=== PATIENT | male | born 1940 | race Caucasian/White ===

== ENCOUNTER → 2018-01-05 | Outpatient (CLI) | payer OTHER ==
[~2018-01-05] VITALS: Ht 162.6 cm; Wt 70.9 kg
[~2018-01-05] MED LIST: AMBIEN 5 MG TABL5 M1 PO; ASPIR 8181 MG PO; ATIVAN0.5 M1 PO; BACLOFEN 10MG T10 MG PO; CELEBREX 200 M200 M1 PO; CENTRUM SILVER1 EAC2 PO; CO Q-10100 MG PO; CRESTOR10 MG PO; CYMBALTA30 MG PO; FISH OIL 1,001000 M2 PO; LAMICTAL100 MG PO; LIORESAL 10 MG10 MG PO; NORCO 10-325 T1 EACH PO; NORCO 7.5-3251 EACH PO; OMEPRAZOLE40 MG PO; SYNTHROID75 MCG PO; TRAMADOL 50 MG50 MG PO; VITAMIN B-121000 MC3 PO; VITAMIN D-32000 UNIT PO
--- NOTE | ~2018-01-05 | HPC ---
[facility] [address] [place] [address] PAIN MANAGEMENT CONSULTATION Name: CYRIL MADISON Room #: REG CLManuela Mckenzie#: [id number] Admission: 01/05/18 Attend Phys: Rigoberto Barboza DO Discharge: Date of : 39 Report #: [id number] THIS REPORT FOR: //name// CC: Javed Barboza DATE OF SERVICE: 01/05/2018 HISTORY OF PRESENT ILLNESS: The patient is a 77-year-old gentleman seen in consultation at the request of Dr. Cardenas for assistance in management of chronic ongoing axial back pain. The patient has a long back pain history, states pain started in 2008 without antecedent trauma, but thinks symptoms may have been related to long car drive [place] the [place]. Had multiple interventional procedures; there are no records available but per the patient, he had at least 10 epidural injections between 03/2010 and 06/2011. Subsequently, had surgery with Dr. Eric Parra in 09/2011. States that following the surgery, he had a new pain in his left foot. The chronic axial back pain may not have been improved. He is a fairly poor historian in this regard. Subsequently, he had some injections by Dr. Murillo including perhaps injections into the left piriformis and trochanteric bursa (?). Progressed to have a subsequent lumbar revision in 02/[address] Dozier. In November of this year, he fell on the ice. He may have had a T12 compression fracture. X-rays do show a 30% compression fracture at this level though on physical exam, the patient does not have any point tenderness over the low thoracic, upper lumbar posterior spinous processes. Currently, the patient notes he has pain that he rates from 5-9 on a VAS. Pain is exacerbated with standing, walking, anywhere from 5-10 minutes. Gets some relief with lumbar flexion. Denies specific radicular symptoms. Pain does some primarily axial. He does note some chronic paresthesia in the left foot. Again, all status post to the 09/2011 surgery. Currently, he uses a rare hydrocodone. Tramadol has lost efficacy. He has taken Celebrex 200 mg 1 a day for some time, recently increased to b.i.d. with questionable efficacy. Had been prescribed lamotrigine by Dr. Dozier, sounds like he takes this on a curious p.r.n. basis with nominal efficacy. REVIEW OF SYSTEMS: Complete review of systems was attached to chart and gone over with the patient. He is , does not smoke or drink alcohol to excess. Retired 17 years ago. He had worked in the [employer] industry. 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 The aforementioned 2 back surgeries, 2010 and 2014. Had bilateral orchiectomy for testicular cancer in 1974, treated with radiation therapy, now gets [address] [address] PAIN MANAGEMENT CONSULTATION Name: CYRIL MADISON Room #: SHAUN Mckenzie#: [id number] Admission: 01/05/18 Attend Phys: Rigoberto Barboza DO Discharge: Date of : 39 Report #: [id number] injections of testosterone every 5 weeks. Pain impact score is 50/70. PHYSICAL EXAMINATION: VITAL SIGNS: A 5 feet 4 inches, 150-pound gentleman, BMI is 26.8 kilograms per meter squared. Blood pressure 164/70, pulse 104, respirations of 14, room air oxygen saturation 99%. Visual analog scale pain score is 5 at present. NEUROLOGIC: Cranial nerves 2-12 are grossly intact. HEENT: Pupils equal and reactive to light and accommodation. Extraocular muscles are intact. NECK: Thyroid is modestly enlarged. Cervical range of motion is adequate. Upper extremity strength is preserved. HEART: Regular rhythmical without murmur. LUNGS: Clear to auscultation. MUSCULOSKELETAL: Rises from chair using the armrest. Diffuse tenderness across the low back. Again, no discrete tenderness noted in the posterior spinous processes throughout the thoracolumbar spine. Lumbar flexion is good to about 80 degrees. Lower extremity strength is generally symmetric. Straight leg raise is equivocal. Patellar and Achilles reflexes are preserved. MAXIMUS test was equivocal. Does have tenderness over the SI joints and low lumbar facet pain is exacerbated with rotation, sidebending. Pelvic distraction does exacerbate some axial back pain (positive SI mediated pain). Does have tenderness in the low back, exacerbated with some rotation and sidebending. The only x-rays available are the lumbar spine from 12/06/2017 showing age indeterminate compression fracture with superior endplate compressed about 30% at T12. There is severe degenerative disk disease throughout the low lumbar spine. The patient states he is unable to tolerate the MRI due to significant claustrophobia. ASSESSMENT: 1. Symptomatic lumbar radiculopathy, status post decompressive laminectomy, failed back syndrome. 2. Axial back pain. 3. Lumbar spondylosis. 4. Component of sacroiliac mediated pain. RECOMMENDATIONS: 1. Long discussion with the patient today about therapeutic options. He is currently on a reasonable NSAID (Celebrex 200 mg daily). Recommend continuing physical therapy with emphasis on core stabilization, SI joint stabilization. 2. We will seek authorization for bilateral SI joint injection under fluoroscopy at next visit due to SI mediated pain. [facility] [address] [place] [address] PAIN MANAGEMENT CONSULTATION Name: CYRIL MADISON Room #: REG CLI Marc.#: [id number] Admission: 01/05/18 Attend Phys: Rigoberto Barboza DO Discharge: Date of : 39 Report #: [id number] 3. Depending on percentage of efficacy with aforementioned intervention, may consider L4-L5 bilateral facet joint injection under fluoroscopy for lumbar spondylitic component pain. If either of these fails to afford adequate relief, we did briefly bring up the discussion of spinal cord stimulator for failed back syndrome. Thanks for allowing me to participate in the patient's care. I will keep you abreast of his progress. <ELECTRONICALLY SIGNED> By: Rigoberto Barboza DO 01/09/18 0747 1417 2215 Rigoberto Barboza DO /nt
[2018-01-05 12:37] VITALS: BP 164/78
== END ==
LOC: PAIN 07:06
DX: M54.16 Radiculopathy, lumbar region (principal); M96.1 Postlaminectomy syndrome, not elsewhere classified; M47.896 Other spondylosis, lumbar region; M53.3 Sacrococcygeal disorders, not elsewhere classified

== ENCOUNTER → 2018-01-06 | Outpatient (CLI) | payer OTHER ==
[~2018-01-06] VITALS: Ht 162.6 cm; Wt 70.8 kg
--- NOTE | ~2018-01-06 | HPC ---
[address] [address] PAIN MANAGEMENT CONSULTATION Name: CYRIL MADISON Room #: REG ABBY Mckenzie#: [id number] Admission: 01/06/18 Attend Phys: Rigoberto Barboza DO Discharge: Date of : 39 Report #: [id number] THIS REPORT FOR: //name// CC: Javed Barboza DATE OF SERVICE: 01/06/2018 The patient is a pleasant 77-year-old gentleman, seen in consultation on 01/05/2018, diagnosed with SI mediated pain, status post lumbar decompressive laminectomy with axial back pain. We sought authorization for bilateral SI joint injection under fluoroscopy today. Presents to Pain Clinic today for this procedure. Pain continues unabated, ongoing in the low back area over the SI area. ASSESSMENT: Symptomatic sacroiliac joint mediated pain, lumbosacral spondylosis. PROCEDURE: Bilateral SI joint injection under fluoroscopy. PROCEDURE NOTE: After written and informed consent was obtained including risk of infection, nerve trauma, increased pain and weakness, the patient wishes to proceed. The patient was taken to the fluoroscopy suite, placed in the prone position. The sacroiliac joint was visualized using the C-arm, turned in an oblique fashion to align the joint. The skin overlying the area was cleansed with ChloraPrep. Skin wheal with Xylocaine was raised. A 22 gauge spinal needle was inserted into the inferior aspect of the joint. A low volume extension tubing was then attached to the needle after the stylet was removed. Negative aspiration was accomplished. A 1 mL of Omnipaque was injected which showed spread within the SI joint. 40 mg triamcinolone plus 2 mL of 0.5% preservative-free bupivacaine was injected into the joint. Needle was removed. Attention was then turned to the contralateral joint which was treated in an identical fashion. After both needles were removed the prep was washed off. Two Band-Aids were applied over the puncture sites. The patient was allowed to ambulate to the recovery room, monitored for an appropriate period of time, discharged in good and stable condition. <ELECTRONICALLY SIGNED> By: Rigoberto Barboza DO 01/09/18 0748 1554 [id number] Rigoberto Barboza DO /nt
[2018-01-06 13:54] VITALS: BP 156/76
== END ==
LOC: PAIN 07:05
DX: M53.3 Sacrococcygeal disorders, not elsewhere classified (principal); M47.897 Other spondylosis, lumbosacral region

== ENCOUNTER → 2018-01-26 | Outpatient (CLI) | payer OTHER ==
[~2018-01-26] VITALS: Ht 162.6 cm; Wt 68.2 kg
--- NOTE | ~2018-01-26 | HPC ---
[facility] [address] [place] [address] PAIN MANAGEMENT CONSULTATION Name: CYRIL MADISON Room #: REG Manuela Tran.#: [id number] Admission: 01/26/18 Attend Phys: Rigoberto Barboza DO Discharge: Date of : 39 Report #: [id number] THIS REPORT FOR: //name// CC: Javed Barboza The patient is a 77-year-old gentleman, seen in consultation 01/05/2018, diagnosed with SI mediated pain, lumbar spondylosis and axial back pain. He is status post lumbar decompressive laminectomy. We had sought authorization for bilateral SI joint injections, this was accomplished and that procedure was done 01/06/2018. The patient returns to pain clinic today noting significant improvement of baseline pain following the injection, specifically the patient notes 90% improvement and that is ongoing. He does, however, have pain, it is a little bit higher, it appears to be more in the lumbar facet region. Curiously states that this occasionally causes some muscle spasm in the mid thoracic spine radiating around to the anterior chest wall. Denies any diaphoresis, shortness of breath, or cardiac type symptoms. This pain does appear to be mechanical and exacerbated with axial loading. PHYSICAL EXAMINATION: Shows a 77-year-old gentleman, BMI is 25.8 kg/m2. Blood pressure is 156/81, pulse 107, respirations 16. Subjective pain score is 6 on a VAS at present. He is not on any blood thinners. He has not fallen in the last 3 months. Rises from the chair using armrest. Gait is tandem. Again, SI mediated pain seems to be improved, but does have tenderness over the mid to low lumbar facets. Pain is exacerbated with side bending and rotation. There is some diffuse tenderness in the low thoracic upper lumbar paravertebral muscles, though no discrete trigger points are at this time. ASSESSMENT: Symptomatic myofascial pain component, lumbar spondylosis, M47.816; some component of lumbosacral spondylosis, M47.817. Bilateral sacroiliac mediated pain well improved with sacroiliac joint injections, bilateral at last visit. RECOMMENDATIONS: 1. We talked today about core strengthening exercises. The patient has a series that he is doing. We reviewed his exercises today and I suggested merely adding a plank for 30-60 seconds. 2. We will trial adding Cymbalta 30 mg once daily for 30 days to see if this helps the myofascial pain component. We will also try adding baclofen 10 mg 1-2 at bedtime as he is having some lower extremity muscle spasm at night. 3. We will seek authorization for L3-L4 and L4-L5 facet joint injection under fluoroscopy for the lumbosacral spondylitic component. The patient was discharged in good and stable condition. Medication changes as [address] [address] PAIN MANAGEMENT CONSULTATION Name: LOSCYRIL Room #: REG ABBY Mckenzie#: [id number] Admission: 01/26/18 Attend Phys: Rigoberto Barboza DO Discharge: Date of : 39 Report #: [id number] noted above. We will seek authorization for L3-L4 and L4-L5 bilateral facet joint injections at next visit. <ELECTRONICALLY SIGNED> By: Rigoberto Barboza DO 02/01/18 0744 1152 1256 Rigoberto Barboza DO /nt
[2018-01-26 10:26] VITALS: BP 156/81
== END ==
LOC: PAIN 06:58
DX: M47.897 Other spondylosis, lumbosacral region (principal); M53.3 Sacrococcygeal disorders, not elsewhere classified

== ENCOUNTER → 2018-02-17 | Outpatient (CLI) | payer OTHER ==
[~2018-02-17] VITALS: Ht 162.6 cm; Wt 68.0 kg
[~2018-02-17] MED LIST changes: -AMBIEN 5 MG TABL5 M1 PO; -ASPIR 8181 MG PO; -ATIVAN0.5 M1 PO; -CENTRUM SILVER1 EAC2 PO; -CO Q-10100 MG PO; -FISH OIL 1,001000 M2 PO; -LIORESAL 10 MG10 MG PO; -NORCO 7.5-3251 EACH PO; -VITAMIN B-121000 MC3 PO; -VITAMIN D-32000 UNIT PO
--- NOTE | ~2018-02-17 | HPC ---
[facility] [address] [place] [address] PAIN MANAGEMENT CONSULTATION Name: CYRIL MADISON Room #: REG ABBY Mckenzie#: [id number] Admission: 02/17/18 Attend Phys: Rigoberto Barboza DO Discharge: Date of : 39 Report #: [id number] THIS REPORT FOR: //name// CC: Javed Barboza The patient is a 77-year-old gentleman, prior seen in the pain clinic 07/06/2018, we proceeded with bilateral L3-L4 and L4-L5 facet joint injections. The patient returns to pain clinic today, noting that the facet joint injections afforded some 85% relief. Pain is only beginning to recur. Pain continued to be in the low back beltline, exacerbated with sidebending and rotation. Radicular pain is nominal though he does note deep ache, cramping sensation in the left calf. The patient is status post lumbar decompressive laminectomies in 2010 and 2012. He was doing reasonably well from a radicular component. On initial presentation to our clinic, December of 2017, he had been rotated from gabapentin to lamotrigine by his back surgeon. He was having ongoing axial back pain and I suggested trialing Cymbalta for chronic pain and baclofen for his leg spasm. The patient tells me today that when he started taking the baclofen and Cymbalta together after 48 hours, he had headache, constipation and stomach ache. Discontinued those medications. Symptoms resolved. He resumed the baclofen with some efficacy. He has not restarted the Cymbalta. Physical exam shows 77-year-old gentleman, BMI is 25.7 kilograms per meter squared. Blood pressure 134/76, pulse 99, respirations are 18. Subjective pain score is 5 on a VAS. He has not fallen in the past 3 months. Functional assessment tool, however, is impacted at 49/70. Rises from chair using armrest. Diffuse tenderness across the low back, pain is exacerbated with sidebending, rotation. No specific radicular symptoms noted, though he does have the aforementioned left calf spasm. ASSESSMENT: Axial back pain, lumbar spondylosis without myelopathy or radiculopathy. Component of axial back pain status post decompressive laminectomy. RECOMMENDATION: We will seek authorization for bilateral medial branch dorsal rami diagnostic blocks, L3, L4 and L5 and consideration of neurolysis of same. We did talk briefly about a spinal cord stimulator and possible therapeutic option for axial back pain. ASSESSMENT: Decompressive laminectomy with left radicular pain component. [address] [address] PAIN MANAGEMENT CONSULTATION Name: CYRIL MADISON Room #: REG CL Marc.#: [id number] Admission: 02/17/18 Attend Phys: Rigoberto Barboza DO Discharge: Date of : 39 Report #: [id number] Discharged in good stable condition. We will seek authorization for the aforementioned medial branch dorsal rami diagnostic blocks at next visit. If transient relief is adequate following those procedures, will seek authorization for RFL. <ELECTRONICALLY SIGNED> By: Rigoberto Barboza DO 02/20/18 0809 1229 1347 Rigoberto Barboza DO /nt
[2018-02-17 10:28] VITALS: BP 134/76
== END ==
LOC: PAIN 06:51
DX: M47.26 Other spondylosis with radiculopathy, lumbar region (principal); M96.1 Postlaminectomy syndrome, not elsewhere classified

== ENCOUNTER → 2018-03-02 | Outpatient (CLI) | payer OTHER ==
[~2018-03-02] VITALS: Ht 162.6 cm; Wt 67.8 kg
--- NOTE | ~2018-03-02 | HPC ---
[facility] [address] [place] [address] PAIN MANAGEMENT CONSULTATION Name: CYRIL MADISON Room #: REG ABBY Mckenzie#: [id number] Admission: 03/02/18 Attend Phys: Rigoberto Barboza DO Discharge: Date of : 39 Report #: [id number] THIS REPORT FOR: //name// CC: Javed Barboza The patient is a 77-year-old gentleman, prior seen in the pain clinic 02/17/2018. He is having ongoing beltline low back pain, deep cramping and aching sensation, somewhat radiating to the left calf, we sought authorization for bilateral L3, L4, and L5 medial branch dorsal rami diagnostic blocks today in consideration of neurolysis of same if he gets good transient relief. He returns to pain clinic today noting while pain is relatively nominal at rest, it is exacerbated with walking 5-10 minutes. Rates pain a 5 on a VAS. We talked about proceeding with diagnostic blocks today. I asked the patient to aggressively walk and exacerbate pain as he can over the next several hours to get a good test with our diagnostic block today. PHYSICAL EXAMINATION: Unchanged from presentation. ASSESSMENT: Symptomatic lumbar spondylosis, lumbosacral spondylosis, all without myelopathy in a patient status post decompressive laminectomy. RECOMMENDATION: Proceed with bilateral L3, L4 and L5 medial branch dorsal rami diagnostic blocks today. We will have the patient call back this afternoon with percentage relief over the next several hours. PROCEDURE NOTE: After written informed consent was obtained, the patient was taken to the fluoroscopy suite and placed in prone position. After sterile prep and drape, skin wheal was raised. A 22-gauge stylet needle was placed to contact superior articular process of L5 and L4, adjacent to the L4 and L3 medial branch dorsal rami nerves. Third needle was placed at the left sacral ala notch. AP and lateral projections showed good needle placement corresponding to the nerves noted. Procedure was repeated on the right side. When all [address], 1 mL of a 50:50 mix of 0.5% preservative-free bupivacaine plus 1.5% preservative-free Xylocaine with 1:200,000 epi was injected. All 6 needles were removed, the area was cleansed, and Band-Aids applied. The patient was monitored for an appropriate period of time and discharged in good and stable condition, noting pain was absent on discharge. We will again call back this afternoon with hourly scores for the next 3 hours. Fluoroscopy time was 14 seconds. <ELECTRONICALLY SIGNED> By: Rigoberto Barboza DO 03/04/18 0954 1134 1319 Rigoberto Barboza DO /nt
[2018-03-02 09:14] VITALS: BP 161/87
== END | disposition home or self-care (01) ==
LOC: PAIN 06:59
DX: M47.816 Spondylosis without myelopathy or radiculopathy, lumbar region (principal); M47.817 Spondylosis without myelopathy or radiculopathy, lumbosacral region

== ENCOUNTER → 2018-03-23 | Outpatient (CLI) | payer OTHER ==
[~2018-03-23] VITALS: Ht 162.6 cm; Wt 68.0 kg
[~2018-03-23] MED LIST changes: +NORCO 7.5-3251 EACH PO
--- NOTE | ~2018-03-23 | HPC ---
[facility] [place] [address] [place] [address] PAIN MANAGEMENT CONSULTATION Name: CYRIL MADISON Room #: REG ABBY Mckenzie#: [id number] Admission: 03/23/18 Attend Phys: Rigoberto Barboza DO Discharge: Date of : 39 Report #: [id number] THIS REPORT FOR: //name// CC: Javed Barboza DATE OF SERVICE: 03/23/2018 The patient is a 77-year-old gentleman being treated for unique thoracic radicular abdominal pain. He has pain in the T11-T12 pattern, exacerbated with standing and walking. Abdominal wall exam is unremarkable. Does not have change of pain with food ingestion and defecation. No indication the pain is coming from abdominal viscera. The patient had prior been treated for lumbosacral and lumbar spondylosis without myelopathy. He noted incremental improvement of the low back axial pain, in fact notes it is "dramatically" improved. Primary pain remains in the abdominal area in the T11-T12 distribution. Last visit 03/17/2018, we sought authorization for epidural injection under fluoroscopy at T11-T12. The patient presents to Pain Clinic today for this injection. He notes his subjective pain is 7-8 on a VAS. ASSESSMENT: Symptomatic thoracic radiculopathy. PROCEDURE: Thoracic epidural steroid injection under fluoroscopy. PROCEDURE NOTE: After written and informed consent was obtained including risk of dural puncture, spinal cord trauma, paralysis and increased pain, the patient was taken to the fluoroscopy suite and placed in the prone position, with appropriate abdominal bolstering, neck was flexed, palms under the thighs. Skin was prepped with ChloraPrep. Sterile draping was applied. Skin wheal with 1% Xylocaine was raised. A 22-gauge 3-1/2 inch epidural Tuohy needle was placed via a midline approach at the T11-T12 interspace, advanced under biplanar fluoroscopy using continuous loss of resistance. With appropriate loss of resistance at the expected depth on lateral view, the glass loss of resistance syringe was disconnected. A low volume extension tubing was connected to the needle and a 5 mL syringe. Negative aspiration for cerebrospinal fluid or blood was noted. A 1 mL of Omnipaque was injected which showed spread within the epidural space on biplanar fluoroscopy. This was followed with 80 mg of triamcinolone plus 1 mL of 1.5% preservative Xylocaine. Needle was withdrawn to the interspinous ligament, 0.5 mL of Xylocaine was used to flush the needle. The needle was then completely withdrawn. The area was cleansed. Band-Aid was applied. The patient was allowed to move off the procedure table and ambulated to the recovery room, monitored for an appropriate period of time. The patient was discharged in good and stable condition. Please note that with [address] [address] PAIN MANAGEMENT CONSULTATION Name: LOS,JACK Room #: REG CLManuela Mckenzie#: [id number] Admission: 03/23/18 Attend Phys: Rigoberto Barboza DO Discharge: Date of : 39 Report #: [id number] subjective pain score of 8 on VAS, his pain was absent on discharge. If patient continues to get relief for the next several hours following this injection, I will be curious to see if he gets further relief with the steroid effect, i.e., incremental relief over the weekend. In either case, if pain does recur, we will refer him to Neurosurgery for consideration for decompression at the T11-T12 site as pain does appear to be in radicular pattern. Discharged in good and stable condition. <ELECTRONICALLY SIGNED> By: Rigoberto Barboza DO 03/27/18 0711 1224 0100 Rigoberto Barboza DO /nt
[2018-03-23 09:08] VITALS: BP 142/77
== END | disposition home or self-care (01) ==
LOC: PAIN 05:34
DX: M54.14 Radiculopathy, thoracic region (principal); G89.29 Other chronic pain; Z98.890 Other specified postprocedural states; Z79.891 Long term (current) use of opiate analgesic; Z79.899 Other long term (current) drug therapy

== ENCOUNTER → 2018-05-05 | Outpatient (CLI) | payer OTHER ==
[~2018-05-05] VITALS: Ht 162.6 cm; Wt 68.0 kg
[~2018-05-05] MED LIST changes: +AMBIEN 5 MG TABL5 M1 PO; +ASPIR 8181 MG PO; +ATIVAN0.5 M1 PO; +CENTRUM SILVER1 EAC2 PO; +CO Q-10100 MG PO; +FISH OIL 1,001000 M2 PO; +LIORESAL 10 MG10 MG PO; +VITAMIN B-121000 MC3 PO; +VITAMIN D-32000 UNIT PO
== END ==
LOC: LAB 07:42
DX: M47.897 Other spondylosis, lumbosacral region (principal); M48.07 Spinal stenosis, lumbosacral region; M51.24 Other intervertebral disc displacement, thoracic region
CPT/HCPCS: 62110; 62900; 70005

== ENCOUNTER → 2018-06-26 | Outpatient (CLI) | payer OTHER ==
[~2018-06-26] VITALS: Ht 162.6 cm; Wt 68.0 kg
[2018-06-26 10:02] VITALS: BP 151/71
== END ==
LOC: MRI 08:02
DX: S22.000A Wedge compression fracture of unspecified thoracic vertebra, initial encounter for closed fracture (principal); M47.812 Spondylosis without myelopathy or radiculopathy, cervical region; M48.02 Spinal stenosis, cervical region; M50.223 Other cervical disc displacement at C6-C7 level; M48.061 Spinal stenosis, lumbar region without neurogenic claudication; M54.5 Low back pain; G95.9 Disease of spinal cord, unspecified; X58.XXXA Exposure to other specified factors, initial encounter; Y93.89 Activity, other specified; Y92.89 Other specified places as the place of occurrence of the external cause; Y99.8 Other external cause status; Z98.890 Other specified postprocedural states
CPT/HCPCS: 62110; 62900; 70005

== ENCOUNTER → 2019-03-08 | Outpatient (CLI) | payer OTHER ==
[~2019-03-08] VITALS: Ht 162.6 cm; Wt 69.9 kg
[~2019-03-08] MED LIST changes: +BENTYL 10 MG CA10 M1 PO; +HYDROCODON-ACE1 EAC8 PO; +IRBESARTAN150 MG PO; +MIRALAX17 GM PO; +TESTOSTERONE75 G1 TRANSDERM
--- NOTE | ~2019-03-08 | HPC ---
[facility] [place] [address] PAIN MANAGEMENT CONSULTATION Name: CYRIL MADISON Room #: REG CL Marc.#: [id number] Admission: 03/08/19 ������������������ Attend Phys: Alexander Moody MD Discharge: ������������������ Date of : 38 Report #: [id number] THIS REPORT FOR: //name// CC: DR AKILAH Moody DATE OF SERVICE: 03/08/2019 CHIEF COMPLAINT: Abdominal pain with radiation from the low back and bilateral thigh pain. HISTORY OF PRESENT ILLNESS: I am seeing the patient for the first time today. I spent roughly 45 minutes with him in consultation. He has been experiencing severe abdominal pain as his primary pain complaint. He suffered a compression fracture at T12 in 11/2017. Unfortunately, he was evaluated by MRI too late to undergo kyphoplasty. He was treated conservatively, and he was doing fairly well; however, while doing some exercises in therapy, he developed the sudden onset of pain in his left abdomen, which then radiated across the abdomen to both sides. That pain has been persistent and bothersome for him over the course of the last year. Review of x-rays of the thoracic spine and MRI on 05/05/2018, there was evidence of an acute/subacute superior endplate compression fracture at T12. There was 10-25% volume loss, however, in addition, there was a retropulsion of the posterior superior fracture segment resulting, in mild to moderately severe spinal stenosis at 9 mm. There was a suggestion of kyphoplasty at that time, perhaps a worsening of his original fracture. However, I believe that the retropulsion of the fracture was a relative contraindication and he never underwent treatment. He was referred to Dr. Quirino Vazquez at [facility] for possible surgery. He had trouble getting in and ultimately saw Dr. Dino Ballesteros who performed a repeat surgery. That surgery, however, focused on severe lumbar stenosis at L3-L4, and he underwent a decompressive microlaminotomies at L3-L4 bilaterally with extensive facet undercutting and a lumbar decompression L4-L5 redo laminotomy bilateral. There was a bulging disk at L3-L4, which was left intact. There was no attention addressed at the T12 level. Dr. Barboza performed a thoracic epidural on 03/23/2018, but this was unhelpful around a year ago. He currently finds some relief from baclofen which he takes twice daily as well as tramadol 50 mg twice daily. His list also includes Celebrex, Crestor, omeprazole, levothyroxine, zolpidem and multivitamin. [address] [address] PAIN MANAGEMENT CONSULTATION Name: CYRIL MADISON Room #: REG CLManuela Mckenzie#: [id number] Admission: 03/08/19 ������������������ Attend Phys: Alexander Moody MD Discharge: ������������������ Date of : 39 Report #: [id number] ALLERGIES: None. PAST MEDICAL HISTORY: Significant for hyperlipidemia, controlled. Gastroesophageal reflux disease, hypothyroidism and he has sleep apnea, which treats with CPAP. SOCIAL HISTORY: He is retired. Denies use of tobacco or alcohol. PHYSICAL EXAMINATION: GENERAL: Pleasant gentleman. VITAL SIGNS: Blood pressure 155/76, heart rate is 112, respirations 18, O2 sat 97, 5 feet 4 inches, 154 pounds, BMI is 26.4. 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 NECK: Supple. CHEST: Clear. CARDIAC: Rhythm is regular. ABDOMEN: Soft with no organomegaly. There was no bruit. MUSCULOSKELETAL: Reveals scarring in his low back from previous surgeries and tenderness. He has some limited range of motion in flexion, extension, lateral tilt. In the seated position with straight leg raising, there is some tightness in the legs, but no true radicular symptoms. Sensation and strength in lower extremities are adequate. Moved independently from sitting to standing position and ambulate, but is not a fall risk. It should be noted he is on no blood thinners. He has no medication for hypertension. He takes opioid medication from his primary care physician, tramadol and has had a prescription filled recently from [facility] for hydrocodone. He is not on an opioid agreement through our clinic, but has completed an opioid risk tool and was considered a low risk for bowel and bladder. IMPRESSION: I believe the abdominal pain is related to radicular distribution from the T12 compression fracture. There may be some referred pain as well from thoracic spondylosis. I would recommend an epidural steroid injection. Preauthorization is required. We will seek that. Questions were answered. Followup visit planned in 1 week for injection. ��������������������������������������������� ���������������������������������������� By: ��������������������������������������������� 1740 1209 Alexander Moody MD /nt
[2019-03-08 09:35] VITALS: BP 155/76
--- NOTE | 2019-03-08 09:40 | NUR ---
Pain Clinic Assessment: 1. History of Osteoarthritis: BACK History of Rheumatoid Arthritis: Not Applicable 2. Height: 5 ft. 4 in. 162.6 cm. Weight: 154.0 lb. oz. 69.854 kg. Patient's BMI: 26.4 3. Vital Signs: BP: 155/76 Pulse: 112 Resp: 18 Temp: 02 Sat: 97 ECG Mon: 4. Pain Intensity: 10 with walking 5. Fall Risk: Dizziness: N Needs help standing or walking: N Fallen in the last 3 months: N Fall risk comments: 6. Patient on Blood Thinner: None 7. History of Hypertension: N 8. Opioid Therapy greater than 6 weeks: N Opiate Contract Signed: 9. Risk Assessment Tool Provided: LOW RISK 0 10. Functional Assessment Tool: 11. Recreational Drug Use: Never Drug Type: Tobacco Use: Former Smoker Tobacco Type: Amount or Packs/day: How Many Years: Alcohol Use: Yes Frequency: Quant:
== END ==
LOC: PAIN 06:54
DX: R10.9 Unspecified abdominal pain (principal); S22.080D Wedge compression fracture of T11-T12 vertebra, subsequent encounter for fracture with routine healing; E78.5 Hyperlipidemia, unspecified; K21.9 Gastro-esophageal reflux disease without esophagitis; E03.9 Hypothyroidism, unspecified; Z79.899 Other long term (current) drug therapy; X58.XXXD Exposure to other specified factors, subsequent encounter

== ENCOUNTER → 2019-03-15 | Outpatient (CLI) | payer OTHER ==
[~2019-03-15] VITALS: Ht 162.6 cm; Wt 69.9 kg
[~2019-03-15] MED LIST changes: +GABAPENTIN 100100 MG PO
--- NOTE | ~2019-03-15 | HPC ---
[facility] [place] [address] PAIN MANAGEMENT CONSULTATION Name: CYRIL MADISON Room #: REG CLManuela Tran.#: [id number] Admission: 03/15/19 ������������������ Attend Phys: Alexander Moody MD Discharge: ������������������ Date of : 39 Report #: [id number] THIS REPORT FOR: //name// CC: ROZ Moody DATE OF SERVICE: 03/15/2019 Followup visit for thoracic epidural injection. I saw the patient in consultation on 03/08/2019. We have received preauthorization to go forward with the thoracic epidural injection. I explained the procedure to him, risks and benefits in detail. He would like to proceed today with the injection. IMPRESSION: Thoracic radiculopathy. PROCEDURE: Thoracic epidural injection. After informed consent, he was taken to the fluoroscopic suite, he was placed prone, skin was prepped with ChloraPrep. Skin anesthetized over T11-T12. A 20-gauge Tuohy epidural needle was advanced on the first attempt into the epidural space with loss of resistance technique. There was no blood or CSF aspirated. A 0.25 mL of Omnipaque was injected and excellent spread of dye was observed in the epidural space. This was then followed by 3 mL of 0.5% lidocaine mixed with 80 mg of triamcinolone. He tolerated the procedure well. Pain score on arrival was 10 with walking. He reported 0 pain score at discharge. Follow up to see how long the duration of response to this injection is and see him back in the pain clinic in 1 month. ��������������������������������������������� ���������������������������������������� By: ��������������������������������������������� 1700 0536 Alexander Moody MD /nt
[2019-03-15 13:27] VITALS: BP 139/67
--- NOTE | 2019-03-15 13:27 | NUR ---
Pain Clinic Assessment: 1. History of Osteoarthritis: BACK History of Rheumatoid Arthritis: Not Applicable 2. Height: 5 ft. 4 in. 162.6 cm. Weight: 154.0 lb. oz. 69.854 kg. Patient's BMI: 26.4 3. Vital Signs: BP: 139/67 Pulse: 108 Resp: 16 Temp: 02 Sat: 98 ECG Mon: 4. Pain Intensity: 10 with walking 5. Fall Risk: Dizziness: N Needs help standing or walking: N Fallen in the last 3 months: N Fall risk comments: 6. Patient on Blood Thinner: None 7. History of Hypertension: N 8. Opioid Therapy greater than 6 weeks: N Opiate Contract Signed: 9. Risk Assessment Tool Provided: LOW RISK 0 10. Functional Assessment Tool: 11. Recreational Drug Use: Never Drug Type: Tobacco Use: Former Smoker Tobacco Type: Amount or Packs/day: How Many Years: Alcohol Use: Yes Frequency: Quant:
== END | disposition home or self-care (01) ==
LOC: PAIN 07:00
DX: M54.14 Radiculopathy, thoracic region (principal); G89.29 Other chronic pain; E78.5 Hyperlipidemia, unspecified; K21.9 Gastro-esophageal reflux disease without esophagitis; E03.9 Hypothyroidism, unspecified; G47.33 Obstructive sleep apnea (adult) (pediatric); Z87.891 Personal history of nicotine dependence; Z79.899 Other long term (current) drug therapy; Z79.1 Long term (current) use of non-steroidal anti-inflammatories (NSAID)

== ENCOUNTER → 2019-04-12 | Outpatient (CLI) | payer OTHER ==
[~2019-04-12] VITALS: Ht 162.6 cm; Wt 67.0 kg
[2019-04-12 10:39] VITALS: BP 141/64
--- NOTE | 2019-04-12 11:02 | NUR ---
Pain Clinic Assessment: 1. History of Osteoarthritis: BACK History of Rheumatoid Arthritis: Not Applicable 2. Height: 5 ft. 4 in. 162.6 cm. Weight: 147.8 lb. oz. 67.042 kg. Patient's BMI: 25.4 3. Vital Signs: BP: 141/64 Pulse: 101 Resp: 14 Temp: 02 Sat: 98 ECG Mon: 4. Pain Intensity: 9 with walking 5. Fall Risk: Dizziness: N Needs help standing or walking: N Fallen in the last 3 months: N Fall risk comments: 6. Patient on Blood Thinner: None 7. History of Hypertension: N 8. Opioid Therapy greater than 6 weeks: N Opiate Contract Signed: 9. Risk Assessment Tool Provided: LOW RISK 0 10. Functional Assessment Tool: 11. Recreational Drug Use: Never Drug Type: Tobacco Use: Former Smoker Tobacco Type: Amount or Packs/day: How Many Years: Alcohol Use: Yes Frequency: Quant:
--- NOTE | 2019-04-16 18:13 | HPC ---
[facility] [address] [place] [address] PAIN MANAGEMENT CONSULTATION Name: CYRIL MADISON Room #: REG ABBY Mckenzie#: [id number] Admission: 04/12/19 ������������������ Attend Phys: Alexander Moody MD Discharge: ������������������ Date of : 39 Report #: [id number] THIS REPORT FOR: //name// CC: ROZ Moody DATE OF SERVICE: 04/12/2019 A [id number] followup visit for assessment of ongoing chest wall and abdominal pain. The patient returned to the pain clinic today with his and we spent a good deal of time today going over his pain generator presentation, physical exam, x-ray studies, and response to previous treatments. His pain continues to seem mechanical and/or radiculopathy to me. It begins in his mid-back, it radiates around his ribcage and follows a T11-T12 distribution. We are well aware of the compression fracture that has occurred at T12. This has created spinal stenosis and may well be the underlying cause of his symptoms with radiculopathy. There are also malalignment of the facet joints in this region and given his limited response to an epidural injection. I have suggested a trial of diagnostic injections for facet arthropathy. If we can favorably eliminate pain with a short-term local anesthetic of these posterior elements, he may be a candidate for radiofrequency ablation. He is very anxious about his ongoing pain and is interested in this treatment. He is currently on gabapentin 100 mg 3 times daily and that medication was ____ and forward to his pharmacy. He is currently not taking an opioid medication and would like to avoid that. On PQRS, he has longstanding history of low back spondylosis. His BMI is 25.4. Pain intensity 9/10 with walking. This has worsened with upright walking and improved almost completely with forward bending at the thoracic spine such as pushing a cart. He is not a fall risk nor has he fallen and he is on no blood thinners and not treated for hypertension and is not taking opioid medications. Denies tobacco and alcohol use. PHYSICAL EXAMINATION: Today, he is 5 feet 4, 147 pounds, blood pressure 141/64, heart rate 101, respirations 14, O2 sat 98. BMI 25.4. He has tenderness across his low back. Upright walking reproduces symptoms. Forward flexion sitting almost immediately causes pain, diminishes to very low level. IMPRESSION: Mechanical low back pain with thoracic spondylosis. Thoracic central stenosis T11-T12 due to compression fracture of T12 with retropulsion of posterosuperior fragment. [address] [address] PAIN MANAGEMENT CONSULTATION Name: CYRIL MADISON Room #[facility] HospitalAsuncion.#: [id number] Admission: 04/12/19 ������������������ Attend Phys: Alexander Moody MD Discharge: ������������������ Date of : 39 Report #: [id number] PLAN: Return to the pain clinic for T11, T12 and L1 medial branch nerve blocks. A 25-minute consultation. ��������������������������������������������� <ELECTRONICALLY SIGNED> ���������������������������������������� By: Alexander Moody MD ��������������������������������������������� 04/16/19 1813 1733 0940 Alexander Moody MD /nt
== END ==
LOC: PAIN 06:44
DX: M47.814 Spondylosis without myelopathy or radiculopathy, thoracic region (principal); M48.54XA Collapsed vertebra, not elsewhere classified, thoracic region, initial encounter for fracture; M48.04 Spinal stenosis, thoracic region; M54.5 Low back pain; Z79.899 Other long term (current) drug therapy

== ENCOUNTER → 2019-04-26 | Outpatient (CLI) | payer OTHER ==
[~2019-04-26] VITALS: Ht 162.6 cm; Wt 67.6 kg
--- NOTE | ~2019-04-26 | HPC ---
[facility] [address] [place] [address] PAIN MANAGEMENT CONSULTATION Name: CYRIL MADISON Room #: REG CL Marc.#: [id number] Admission: 04/26/19 ������������������ Attend Phys: Alexander Moody MD Discharge: ������������������ Date of : 39 Report #: [id number] THIS REPORT FOR: //name// CC: Javed Moody DATE OF SERVICE: 04/26/2019 CHIEF COMPLAINT: Followup visit for chronic pain related to thoracic compression fracture T12 with retropulsion of fragment and thoracic spondylosis. After a long extensive consultation with the patient on 04/12/2019, he is here today for medial branch nerve blocks as a diagnostic procedure that may allow us to proceed with ablation. Although, I spent a fair amount of time explaining the procedure with him at last visit, he requested that we discuss it once again. I spent an additional 10 minutes explaining the procedure diagnostic rather than therapeutic and to also discuss how he should monitor the response to this treatment over the course of the next 6 hours. He was given a log for that. PHYSICAL EXAMINATION: GENERAL: Pleasant gentleman. VITAL SIGNS: Blood pressure is 132/71, heart rate is 95. He has some tenderness across his low back. With sitting, his pain score is 0. With standing or walking, the pain radiates in the intensity of 7-8 around the costal margin. There are no palpable masses. IMPRESSION: Thoracic spondylosis and radiculopathy with central stenosis secondary to T12 compression fracture with retropulsion of posterior superior fragment. PROCEDURE: T11, T12 and L1 transverse process, medial branch nerve blocks. PROCEDURE: He was taken to fluoroscopic suite for treatment. He was placed prone, skin prepped with ChloraPrep. Skin was anesthetized over the transverse process of T11, T12 and L1. A 25-gauge needle was gently advanced into position at the lateral portion of the transverse process of T12 and T11 and at the junction between the transverse process and the superior articulating process of L1. After negative aspiration, I injected each needle with 0.5 mL of 0.5% bupivacaine and the needles were removed. The patient was allowed to reposition and then the procedure was repeated on the right. Skin anesthetized again over the same targets at T11, T12 and L1 transverse process. After positioning the needles and after negative aspiration, I gently injected through each needle. A 0.5 mL of 0.5% bupivacaine without triamcinolone. He tolerated the procedure well. Pain score was 2 in the recovery room in the seated position, but that is [address] [address] PAIN MANAGEMENT CONSULTATION Name: CYRIL MADISON Room #: REG CLI [facility].#: [id number] Admission: 04/26/19 ������������������ Attend Phys: Alexander Moody MD Discharge: ������������������ Date of : 39 Report #: [id number] his best position. He was asked to ambulate and reproduce some pain, but was unable to give us a good score before discharge. He was given a log to keep and will call into the clinic tomorrow. Followup visit planned for a second diagnostic medial branch nerve blocks as soon as the schedule will allow. ��������������������������������������������� ���������������������������������������� By: ��������������������������������������������� 1744 2322 Alexander Moody MD /nt
[2019-04-26 16:02] VITALS: BP 136/65
--- NOTE | 2019-04-26 16:24 | NUR ---
Pain Clinic Assessment: 1. History of Osteoarthritis: BACK History of Rheumatoid Arthritis: Not Applicable 2. Height: 5 ft. 4 in. 162.6 cm. Weight: 149.0 lb. oz. 67.586 kg. Patient's BMI: 25.6 3. Vital Signs: BP: 136/65 Pulse: 95 Resp: 14 Temp: 02 Sat: 98 ECG Mon: 4. Pain Intensity: 7-8 5. Fall Risk: Dizziness: N Needs help standing or walking: N Fallen in the last 3 months: N Fall risk comments: 6. Patient on Blood Thinner: None 7. History of Hypertension: N 8. Opioid Therapy greater than 6 weeks: N Opiate Contract Signed: 9. Risk Assessment Tool Provided: LOW RISK 0 10. Functional Assessment Tool: 11. Recreational Drug Use: Never Drug Type: Tobacco Use: Former Smoker Tobacco Type: Amount or Packs/day: How Many Years: Alcohol Use: Yes Frequency: Quant:
== END | disposition home or self-care (01) ==
LOC: PAIN 06:57
DX: M47.814 Spondylosis without myelopathy or radiculopathy, thoracic region (principal); M54.14 Radiculopathy, thoracic region; M48.04 Spinal stenosis, thoracic region; G89.29 Other chronic pain; Z98.890 Other specified postprocedural states; Z87.891 Personal history of nicotine dependence; Z79.899 Other long term (current) drug therapy; Z79.891 Long term (current) use of opiate analgesic

== ENCOUNTER → 2019-05-03 | Outpatient (CLI) | payer OTHER ==
[~2019-05-03] VITALS: Ht 162.6 cm; Wt 68.9 kg
[2019-05-03 12:39] VITALS: BP 126/51
--- NOTE | 2019-05-03 12:45 | NUR ---
Pain Clinic Assessment: 1. History of Osteoarthritis: BACK History of Rheumatoid Arthritis: Not Applicable 2. Height: 5 ft. 4 in. 162.6 cm. Weight: 151.8 lb. oz. 68.856 kg. Patient's BMI: 26.0 3. Vital Signs: BP: 126/51 Pulse: 103 Resp: 16 Temp: 02 Sat: 96 ECG Mon: 4. Pain Intensity: 8-9 5. Fall Risk: Dizziness: N Needs help standing or walking: N Fallen in the last 3 months: N Fall risk comments: 6. Patient on Blood Thinner: None 7. History of Hypertension: N 8. Opioid Therapy greater than 6 weeks: N Opiate Contract Signed: 9. Risk Assessment Tool Provided: LOW RISK 0 10. Functional Assessment Tool: 11. Recreational Drug Use: Never Drug Type: Tobacco Use: Former Smoker Tobacco Type: Amount or Packs/day: How Many Years: Alcohol Use: Yes Frequency: Daily Quant:
--- NOTE | 2019-05-15 17:25 | HPC ---
[facility] [address] [place] [address] PAIN MANAGEMENT CONSULTATION Name: CYRIL MADISON Room #: REG CLManuela Tran.#: [id number] Admission: 05/03/19 ������������������ Attend Phys: Alexander Moody MD Discharge: ������������������ Date of : 39 Report #: [id number] THIS REPORT FOR: //name// CC: ROZ Moody DATE OF SERVICE: 05/03/2019 Followup visit for mid back pain with radiation and referral along the chest wall and the costal margin into the abdomen. The patient returns to the pain clinic today after the second diagnostic medial branch block failed to provide similar relief to the first. It is believed that there is generally a 30% to 40% placebo effect on these procedures, which is why it is often recommended that 2 diagnostic injections be performed before we go forward with lesioning. His failure to respond to his last injection suggests to me that his pain is not being mediated through the facet joints and I have elected not to go forward with radiofrequency ablation. We had a 25- to 30-minute consultation about next steps. Reviewing his x-rays, I do believe that the level T11-T12 of the thoracic spine is the area of pain generation. He has a retropulsion of the posterior superior fragment, resulting in [id number] spinal stenosis at that level. The spinal canal measures 9 mm and this segment is actually contacting the spinal cord. Given its concordance with his pain, I suspect that this spinal stenosis is the cause and if we want to treat it at a causal level, it would likely require surgery. He has no interest in additional surgery. He has not done well with previous lumbar surgeries. This leaves is with only a few options for management of pain. He will have to learn to live with some pain, I believe, with the hope that it will get better over time. This is important to have ongoing optimism in order to manage the pain. I do not think it should affect his day-to-day activities as long as he can work through the pain. Medication was discussed at some length. The opioid crisis has everyone uncomfortable, patients and physicians alike. However, he is a responder. Two hydrocodone 7.5/325 mg tablets taken 6-8 times a week are currently being used with some success in alleviating pain over the time that he uses it. If this option were to be continued indefinitely, it would be a way to manage his pain at the age of 78 and I think it is quite reasonable. He has few side effects on the medication and he understands that if he uses them, it is his responsibility to make sure that they are carefully safeguarded. We had a long discussion today about opioids in the treatment of chronic intractable pain. For a 78-year-old gentleman with few other options, other than a thoracic laminectomy, [facility] [address] [place] [address] PAIN MANAGEMENT CONSULTATION Name: CYRIL MADISON Room #: REG ABBY Mckenzie#: [id number] Admission: 05/03/19 ������������������ Attend Phys: Alexander Moody MD Discharge: ������������������ Date of : 39 Report #: [id number] if this is effective, I think this would be very reasonable and appropriate use of opioid medication in the treatment of chronic pain. He has tried other measures, including gabapentin and nonsteroidal anti-inflammatory drugs. I have agreed to provide his medication for him under the terms of written agreement. At some point in time, I do not think it would be wrong for his primary care physician to provide these medications for him. He is not part of the opioid crisis. He has completed an opioid risk tool and his likelihood of addiction by that is a 0. I reviewed his prescription drug monitoring information with [facility]. His previous prescription was provided by [facility] in [place]. We will send a copy of this dictation to her as well as to Dr. Cardenas to let them know that he will be receiving medication from us in the future under the terms of our agreement. A signed agreement was entered into his chart. PHYSICAL EXAMINATION: GENERAL: Today, he is a pleasant gentleman. He has a nice sense of humor. VITAL SIGNS: His blood pressure is 126/51, heart rate 103 and respirations 16. He is 5 feet 4 inches, 151 pounds and BMI is 26. MUSCULOSKELETAL: Continued tenderness through the mid back and radiation around the rib cage. His gait is normal. IMPRESSION: Chronic intractable mid back pain secondary to compression fracture of T12 with retropulsion of posterior superior fragment. Followup visit for medication management in 2-3 months. He was given a prescription for hydrocodone 7.5/325, 120 tablets, 1 tablet q. 6 hours as needed for intractable chronic pain. ��������������������������������������������� <ELECTRONICALLY SIGNED> ���������������������������������������� By: Alexander Moody MD ��������������������������������������������� 05/15/19 1725 1716 2149 Alexander Moody MD /nt
== END ==
LOC: PAIN 06:58
DX: M48.54XA Collapsed vertebra, not elsewhere classified, thoracic region, initial encounter for fracture (principal); M54.9 Dorsalgia, unspecified; G89.29 Other chronic pain; Z79.899 Other long term (current) drug therapy

== ENCOUNTER → 2019-06-11 | Outpatient (CLI) | payer OTHER ==
[~2019-06-11] MED LIST changes: +VALIUM5 MG PO
--- NOTE | ~2019-06-11 | HPC ---
[facility] [place] [address] PAIN MANAGEMENT CONSULTATION Name: CYRIL MADISON Room #: REG CL Marc.#: [id number] Admission: 06/11/19 ������������������ Attend Phys: Alexander Moody MD Discharge: ������������������ Date of : 38 Report #: [id number] THIS REPORT FOR: //name// CC: Javed Fitzpatrick MD DATE OF SERVICE: 06/11/2019 CHIEF COMPLAINT: Followup visit for thoracic pain with radiation into the abdomen. Thoracic radiculopathy. The patient was in clinic today for followup. He is getting along pretty well using some hydrocodone. When he is sitting, his pain score is 0. When he stands, he says his pain is 10/10. We discussed that number. 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 He thought maybe it was the fact that he had some diversion and distraction or as he puts my adrenaline was flowing. He describes also an activity that he can do that does not hurt his back. 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 In this position, his back would be an extension. When he is in extension, his back seems to be better. I think this fits with a more mechanical pain as we have discussed before as a result of the T12 compression fracture with retropulsion discussed frequently throughout this note. We discussed treatments again, reviewing again all of the things we have done and the possibility that our surgical decompression might be necessary. He does not want to undergo surgery and I understand that, so we will manage him as best we can with medication. I have been in contact with Dr. Fitzpatrick who has unfortunately not received my previous dictations I sent him to his office and we will make sure that he receives further dictations. He is now on an opioid agreement verbally. He finds that the medication does relieve pain. He has been taking hydrocodone 7.5/325 and noticing improvement when he takes it for a good extension of time. He denies side effects. He understands that there is an opioid crisis in [facility] and it is his responsibility to carefully safeguard his medications. He has asked if he can take a bit higher dose. I still believe that providing him with 10 mg tablet is not excessive. He is using about 2-3 tablets a day. Even with 10 mg hydrocodone taken 3 times daily, his morphine milligram equivalency would be 30. While he is 78 years of age and there are some concerns about that, he seems to [address] [address] PAIN MANAGEMENT CONSULTATION Name: CYRIL MADISON Room #: REG ABBY Mckenzie#: [id number] Admission: 06/11/19 ������������������ Attend Phys: Alexander Moody MD Discharge: ������������������ Date of : 38 Report #: [id number] tolerate it quite well and I have no other treatments that are short of surgery at this point in time. He is following also with Dr. Fitzpatrick who has given him some Valium. There is an interaction between diazepam and other benzodiazepines with opioids, but he has taken them now for a short period of time without excessive sedation. We did give him some precautions about the use of Valium in combination with an opioid. PQRS: Positive for osteoarthritis, particularly with spondylosis of the spine. His BMI is 26. His blood pressure is 125/80, heart rate is 80. Pain intensity reported as 0 during our interview while he is sitting. He is not a fall risk nor has he fallen. He is on no blood thinners nor is he treated for hypertension. All medications have been reviewed and reconciled. He has completed an opioid risk tool as required for all patients in our practice and a score is 0, suggesting significantly low risk of becoming addicted to medication. He denies use of tobacco, drinks alcohol once or twice daily in a social setting and was cautioned about the interaction between alcohol and centrally acting medications. IMPRESSION: Thoracic radiculopathy related to compression fracture. PLAN: Follow up with medication management in 1 month. I have increased his dose of hydrocodone to 10/325 no more tablets than 1 every 6 hours. He will use it cautiously as described. We will have him sign an opioid agreement if he continues on it and I have no concerns if Dr. Cardenas or Dr. Fitzpatrick prescribes this medication for him, he just needs one single prescriber. ��������������������������������������������� ���������������������������������������� By: ��������������������������������������������� 1100 0810 Alexander Modoy MD /nt
--- NOTE | 2019-06-11 09:42 | NUR ---
Pain Clinic Assessment: 1. History of Osteoarthritis: BACK History of Rheumatoid Arthritis: Not Applicable 2. Height: ft. in. cm. Weight: lb. oz. kg. Patient's BMI: 3. Vital Signs: BP: Pulse: Resp: Temp: 02 Sat: ECG Mon: 4. Pain Intensity: 0 5. Fall Risk: Dizziness: N Needs help standing or walking: N Fallen in the last 3 months: N Fall risk comments: 6. Patient on Blood Thinner: None 7. History of Hypertension: N 8. Opioid Therapy greater than 6 weeks: N Opiate Contract Signed: 9. Risk Assessment Tool Provided: LOW RISK 0 10. Functional Assessment Tool: 40/70 11. Recreational Drug Use: Never Drug Type: Tobacco Use: Former Smoker Tobacco Type: Amount or Packs/day: How Many Years: Alcohol Use: Yes Frequency: Daily Quant: 1
== END ==
LOC: PAIN 06:51
DX: M54.14 Radiculopathy, thoracic region (principal)

== ENCOUNTER 2019-08-28 11:19 | Outpatient (CLI) | payer OTHER ==
[~2019-08-28] VITALS: Ht 162.6 cm; Wt 67.1 kg
[~2019-08-28 11:19] MED LIST changes: +COQ-1030 MG PO; +HYDROCODONE-AP1 EACH PO; +LAMOTRIGINE100 M1 PO; +VOLTAREN 50MG T50 MG PO
== END 2019-08-28 14:10 | disposition home or self-care (01) ==
LOC: MRI 11:19 → TBA 11:27 → MRI 14:10
DX: M43.17 Spondylolisthesis, lumbosacral region (principal); M43.8X4 Other specified deforming dorsopathies, thoracic region; M51.26 Other intervertebral disc displacement, lumbar region; M48.061 Spinal stenosis, lumbar region without neurogenic claudication; M51.27 Other intervertebral disc displacement, lumbosacral region; M48.07 Spinal stenosis, lumbosacral region
CPT/HCPCS: 62110; 62900; 70005

== ENCOUNTER → 2020-04-17 | Outpatient (CLI) | payer OTHER ==
[~2020-04-17] VITALS: Ht 162.6 cm; Wt 66.1 kg
[~2020-04-17] MED LIST changes: +CELEBREX 200 M200 MG PO
[2020-04-17 09:33] VITALS: BP 156/74
--- NOTE | 2020-04-17 10:06 | NUR ---
Pain Clinic Assessment: 1. History of Osteoarthritis: BACK History of Rheumatoid Arthritis: Not Applicable 2. Height: 5 ft. 4 in. 162.6 cm. Weight: 145.8 lb. oz. 66.134 kg. Patient's BMI: 25.0 3. Vital Signs: BP: 156/74 Pulse: 111 Resp: 14 Temp: 02 Sat: 98 ECG Mon: 4. Pain Intensity: 9-10 abd, 5-6 hip/sacrum 5. Fall Risk: Dizziness: N Needs help standing or walking: N Fallen in the last 3 months: N Fall risk comments: 6. Patient on Blood Thinner: None 7. History of Hypertension: N 8. Opioid Therapy greater than 6 weeks: Y Opiate Contract Signed: 9. Risk Assessment Tool Provided: LOW RISK 0 10. Functional Assessment Tool: 55/ 11. Recreational Drug Use: Never Drug Type: Tobacco Use: Former Smoker Tobacco Type: Cigarettes Amount or Packs/day: 2 ppd How Many Years: 15 Alcohol Use: Yes Frequency: Daily Quant: 1/day
--- NOTE | 2020-05-01 12:16 | HPC ---
[facility] [place] [address] PAIN MANAGEMENT CONSULTATION Name: CYRIL MADISON Room #: REG ABYB Marc.#: [id number] Admission: 04/17/20 Attend Phys: Alexander Moody MD Discharge: Date of : 39 Report #: [id number] THIS REPORT FOR: cc: Javed Cardenas II, MD, II,Alexander Maynard MD, MD ~ CC: Javed Fitzpatrick MD DATE OF SERVICE: 04/17/2020 Followup visit for chronic pain. I am seeing the patient today in followup for pain in the hips. I have seen him previously for other pain generators. His most troublesome pain right now is pain overlying each trochanter, which he says is painful while walking. The left is worse than the right, about 80% of the pain is on the left side. They are quite symmetrical; however. He has longstanding abdominal pain, which we treated both with medication and with injections with limited improvement. He has learned to live with it and it does not seem to bother him as much. He discussed with us today his chronic anxiety disorder, claustrophobia and insomnia. He has had significant anxiety around the COVID-19 pandemic. He uses a CPAP at night and is often awoken by the sense that he is having difficulty breathing. This makes it difficult for him to go back to sleep. He has some medications that he has available to use on a p.r.n. basis, but uses them quite conservatively. I did provide for him hydrocodone for his intractable pain in May of last year, #120 tablets of hydrocodone 10 were provided for him at that time and he has used them so sparingly that he still has a couple of left, that would come down to about 1 tablet of hydrocodone every 3 days if we do the math. He obviously is not misusing, abusing or over-utilizing the opioids. He does report, however, that they are helpful and he is grateful for the pain relief that they provide when he takes them. He is just very cautious and I am certainly fine with that. He has followed up with a remote sensing technician who says that he has arthritis certainly to be expected for age. PQRS is completed. He has a history of pain in the hips, which may be osteoarthritic. He also has lumbar spondylitic pain. His BMI is 25. His blood [address] [address] PAIN MANAGEMENT CONSULTATION Name: CYRIL MADISON Room #: REG FINAManuela Mckenzie#: [id number] Admission: 04/17/20 Attend Phys: Alexander Moody MD Discharge: Date of : 39 Report #: [id number] pressure today 156/74, heart rate elevated at 111. His O2 sats 98. He is wearing a mask because of COVID restrictions. Pain intensity is described as 5-6 bilaterally in the sacrum and in the hip. Most of this is tenderness over the greater trochanter. He does not need help walking or standing. He has not fallen in the last 3 months. He is on no blood thinners nor is he treated for hypertension. He has had some opioids provided under terms of an agreement and we have had him complete an opioid risk tool. His score is 0, which suggests that he is at low risk of addiction or misuse. His use of medication described above would bear that out. Pain interferes dramatically with his life and he scores his functional assessment score 55/70. This is considered a very high score and pain plays a big role in his day-to-day activities. He has not smoked for many years, but was 1- to 5-wwke-h-day smoker. Still occasionally enjoys alcohol. PHYSICAL EXAMINATION: He is an anxious gentleman, pleasant, but pensive. Moves independently from sitting to standing position and ambulates with antalgic gait. He has bilateral significant tenderness just posterior to the greater trochanter. This reproduces his pain. He has minimal pain with internal and external rotation. IMPRESSION: 1. Trochanteric bursitis. 2. Chronic pain with history of compression fracture at T12 with retropulsion of posterior superior fragment. 3. Management of very low dose opioid medications under terms. I am willing to provide him with some additional hydrocodone, but we will cut his prescription in half to 60 tablets, 1 tablet b.i.d. p.r.n. PROCEDURE: Bilateral trochanteric bursa injections. Skin was prepped with ChloraPrep. A 25-gauge needle was used first on the left. The lateral margin of the greater trochanter was identified with the tip of the needle and I infiltrated around that and posterior total of 4 mL of 0.25% bupivacaine mixed with 40 mg of triamcinolone. He tolerated the procedure well. There were no complications. He then rolled to the opposite side and we performed a mirror injection on the left, also well tolerated. He was taken to recovery room for a short time and then discharged. We will see what his response to this injection is. This will not take away all of his problems. He has chronic pain which I continued to believe is related to the retropulsed fracture fragment at T12. He will continue to try and manage as effectively as possible with conservative measures. [facility] [address] [place] [address] PAIN MANAGEMENT CONSULTATION Name: CYRIL MADISON Room #: REG ABBY TranAsuncion#: [id number] Admission: 04/17/20 Attend Phys: Alexander Moody MD Discharge: Date of : 39 Report #: [id number] Follow up as needed. <ELECTRONICALLY SIGNED> By: Alexander Moody MD 05/01/20 1216 [id number] Alexander Moody MD /nt
== END | disposition home or self-care (01) ==
LOC: PAIN 06:54
PROVIDERS: ATTEND Anesthesiology Pain Medicine
DX: M70.62 Trochanteric bursitis, left hip (principal); M70.61 Trochanteric bursitis, right hip; G89.29 Other chronic pain; Z98.890 Other specified postprocedural states; Z79.899 Other long term (current) drug therapy; Z87.891 Personal history of nicotine dependence

== ENCOUNTER → 2020-08-11 | Outpatient (CLI) | payer OTHER ==
[~2020-08-11] VITALS: Ht 162.6 cm; Wt 65.4 kg
[~2020-08-11] MED LIST changes: +BUSPIRONE HCL15 MG PO; +CALCIUM500 MG PO; +VITAMIN C500 M1 PO
--- NOTE | ~2020-08-11 | HPC ---
[facility] [address] [place] [address] PAIN MANAGEMENT CONSULTATION Name: CYRIL MADISON Room #: REG ABBY NeriJonathanAsuncion#: [id number] Admission: 08/11/20 Attend Phys: Alexandre Moody MD Discharge: Date of : 39 Report #: [id number] THIS REPORT FOR: cc: Javed Cardenas II, MD, II,Javed Moody,Alexander Scherer MD ~ CC: Javed Moody DATE OF SERVICE: 08/11/2020 Followup visit for chronic pain. The patient has 2 pains. One is in his abdomen, which we believe may be referred pain or radicular pain from the T12 injury. No other abdominal source has been found. This bothers him quite a bit. Diagnosis has been difficult. He has seen multiple physicians. He takes tramadol to help with his pain provided for him by Dr. Javed Cardenas. Second pain is trochanteric bursitis, which has responded nicely to injections. Months of pain relief were provided with his last injection. He is here today hoping for another injection on the left. The pain is just now returning. It is located just above the trochanter. It is worse with standing and weightbearing. He also has a chronic anxiety disorder and claustrophobia in combination with insomnia. He has tried several different medications with difficulty. Dr. Cardenas has tried Lexapro, which provided no relief and caused side effects, then started him on BuSpar. He was told that the BuSpar, tramadol interaction would keep him from taking both medicines. There are some serotonin effects, but only at higher doses. Nonetheless, I will leave that decision to Dr. Cardenas. An anxiolytic seems to be a reasonable medicine for him. Even the dreaded use of a benzodiazepine might provide the patient with benefit. I would at least consider small low dose titrated benzodiazepine for his anxiety. He was started on lamotrigine years ago for neuropathic pain. My partner, Dr. Barboza started that medicine. He has stopped taking it and has noticed no difference. Most of his pain is inflammatory. I think he can stay off that medicine, one last medicine in his list of polypharmacies. Dr. Cardenas has recommended a psychotherapist, Dr. Dino Enrique. Dr. Enrique then felt that hypnotherapy would be of benefit and he sent the patient to Dr. Cerda. He has an appointment today at 2:30 for hypnotherapy to help him with his anxiety. We discussed the importance of simple things, getting outside, doing things like [facility] [address] [place] [address] PAIN MANAGEMENT CONSULTATION Name: CYRIL MADISON Room #: REG CLI Jonah#: [id number] Admission: 08/11/20 Attend Phys: Alexander Moody MD Discharge: Date of : 39 Report #: [id number] taking a walk in nature, gardening has been shown to be helpful. Listening quietly to classical music, mindfulness meditation, relaxation and prayer. All can be helpful for patients with anxiety and did not involve medicines or side effects. He was listening, but I am not sure he will take up any of these helpful strategies. He has not fallen recently. He is on no blood thinners and has no history of hypertension. He has been on opioid therapy, but we do not prescribe it. Nonetheless, he completed an opioid risk tool and his assessment is 0. He is highly dysfunctional with his pain scoring. His functional assessment score 55/70. This suggests pretty much everything he does as interfered by his chronic daily pain. Drinks alcohol occasionally, but denies use of tobacco. PHYSICAL EXAMINATION: GENERAL: He is an anxious gentleman. VITAL SIGNS: Blood pressure is 147/83, heart rate 113, respirations are 16, O2 sat 100 on room air. He is wearing a mask for COVID restrictions. He is 5 feet 4 inches. His BMI is 24.7. CHEST: Clear. CARDIAC: Rhythm is regular. ABDOMEN: Soft and nontender. There are no palpable masses. There is some tenderness in his midback. MUSCULOSKELETAL: Reveals tenderness overlying the greater trochanter bilaterally, first worse on the left than the right. Pain with internal and external rotation. IMPRESSION: Left hip pain, likely trochanteric bursitis based upon injection response. PLAN: Trochanteric bursa injection. PROCEDURE: Skin prepped with ChloraPrep. A 25-gauge needle was advanced into the area of the trochanteric bursa. After negative aspiration, I injected a total of 6 mL of 0.25% bupivacaine mixed with 40 mg of triamcinolone. He tolerated the procedure well. There were no complications. He was discharged shortly thereafter. Followup visit planned as needed. I will leave medication management to Dr. Cardenas in the last specifically to help. By: [id number] Alexander Moody MD /nt
[2020-08-11 09:09] VITALS: BP 147/83
--- NOTE | 2020-08-11 09:37 | NUR ---
Pain Clinic Assessment: 1. History of Osteoarthritis: BACK History of Rheumatoid Arthritis: Not Applicable 2. Height: 5 ft. 4 in. 162.6 cm. Weight: 144.2 lb. oz. 65.409 kg. Patient's BMI: 24.7 3. Vital Signs: BP: 147/83 Pulse: 113 Resp: 16 Temp: 02 Sat: 99 ECG Mon: 4. Pain Intensity: 9-10 abd, 5-6 hip/sacrum 5. Fall Risk: Dizziness: N Needs help standing or walking: N Fallen in the last 3 months: N Fall risk comments: 6. Patient on Blood Thinner: None 7. History of Hypertension: N 8. Opioid Therapy greater than 6 weeks: Y Opiate Contract Signed: 9. Risk Assessment Tool Provided: LOW RISK 0 10. Functional Assessment Tool: 55/ 11. Recreational Drug Use: Never Drug Type: Tobacco Use: Former Smoker Tobacco Type: Amount or Packs/day: How Many Years: Alcohol Use: Yes Frequency: Quant:
== END | disposition home or self-care (01) ==
LOC: PAIN 06:57
PROVIDERS: ATTEND Anesthesiology Pain Medicine
DX: M25.552 Pain in left hip (principal); G89.29 Other chronic pain; M70.62 Trochanteric bursitis, left hip; Z79.899 Other long term (current) drug therapy

== ENCOUNTER → 2020-12-04 | Outpatient (CLI) | payer OTHER ==
[~2020-12-04] VITALS: Ht 162.6 cm; Wt 67.6 kg
[~2020-12-04] MED LIST changes: +BELSOMRA10 MG PO; +L-THEANINE200 MG PO; +SERTRALINE HCL100 MG PO; +UNITHROID75 MCG PO
[2020-12-04 10:40] VITALS: BP 120/60
--- NOTE | 2020-12-04 11:17 | NUR ---
Pain Clinic Assessment: 1. History of Osteoarthritis: BACK History of Rheumatoid Arthritis: Not Applicable 2. Height: 5 ft. 4 in. 162.6 cm. Weight: 149.0 lb. oz. 67.586 kg. Patient's BMI: 25.6 3. Vital Signs: BP: 120/60 Pulse: 102 Resp: 14 Temp: 02 Sat: 97 ECG Mon: 4. Pain Intensity: 8-9 WITH ACTIVITY 5. Fall Risk: Dizziness: N Needs help standing or walking: N Fallen in the last 3 months: N Fall risk comments: 6. Patient on Blood Thinner: None 7. History of Hypertension: Y 8. Opioid Therapy greater than 6 weeks: Y Opiate Contract Signed: 9. Risk Assessment Tool Provided: LOW RISK 0 10. Functional Assessment Tool: 55/70 11. Recreational Drug Use: Never Drug Type: Tobacco Use: Former Smoker Tobacco Type: Amount or Packs/day: How Many Years: Alcohol Use: Yes Frequency: Quant:
== END ==
LOC: PAIN 11-10 07:01
PROVIDERS: ATTEND Anesthesiology Pain Medicine
DX: G89.4 Chronic pain syndrome (principal); M16.12 Unilateral primary osteoarthritis, left hip; Z79.891 Long term (current) use of opiate analgesic; Z87.891 Personal history of nicotine dependence

== ENCOUNTER → 2021-09-24 | Outpatient (CLI) | payer OTHER ==
[~2021-09-24] VITALS: Ht 162.6 cm; Wt 60.6 kg
[~2021-09-24] MED LIST changes: +ACETAMINOPHEN650 M5 PO; +BENADRYL25 MG PO; +CO Q-10300 MG PO; +COLACE100 MG PO; +DEXAMETHASONE1 MG PO; +METAMUCIL1 EAC1 PO; +METOPROLOL SUCC25 M1 PO; +NORCO7.5 PO; +ONDANSETRON HCL8 MG PO; +TEMOZOLOMIDE250 MG PO
[2021-09-24 13:10] VITALS: BP 128/66
--- NOTE | 2021-09-24 13:16 | NUR ---
Pain Clinic Assessment: 1. History of Osteoarthritis: BACK History of Rheumatoid Arthritis: Not Applicable 2. Height: 5 ft. 4 in. 162.6 cm. Weight: 133.6 lb. oz. 60.600 kg. Patient's BMI: 22.9 3. Vital Signs: BP: 128/66 Pulse: 103 Resp: 16 Temp: 02 Sat: 98 ECG Mon: 4. Pain Intensity: 5 5. Fall Risk: Dizziness: N Needs help standing or walking: N Fallen in the last 3 months: N Fall risk comments: 6. Patient on Blood Thinner: None 7. History of Hypertension: Y 8. Opioid Therapy greater than 6 weeks: Y Opiate Contract Signed: 9. Risk Assessment Tool Provided: LOW RISK 0 10. Functional Assessment Tool: 55/70 11. Recreational Drug Use: Never Drug Type: Tobacco Use: Former Smoker Tobacco Type: Amount or Packs/day: How Many Years: Alcohol Use: No Frequency: Quant:
== END ==
LOC: PAIN 10:13
PROVIDERS: ATTEND Anesthesiology Pain Medicine
DX: G89.29 Other chronic pain (principal); R10.9 Unspecified abdominal pain; R10.2 Pelvic and perineal pain; Z87.891 Personal history of nicotine dependence; Z79.899 Other long term (current) drug therapy

== ENCOUNTER → 2021-10-01 | Outpatient (CLI) | payer OTHER ==
[2021-10-01 10:57] LABS: CREATININE 0.9 mg/dL (0.7-1.3)
== END | disposition home or self-care (01) ==
LOC: CAT 09:22 → LAB 09:47
PROVIDERS: ATTEND Family Medicine
DX: K57.30 Diverticulosis of large intestine without perforation or abscess without bleeding (principal); K59.00 Constipation, unspecified

== ENCOUNTER → 2021-10-29 | Outpatient (CLI) | payer OTHER ==
[~2021-10-29] VITALS: Ht 162.6 cm; Wt 62.1 kg
[2021-10-29 14:00] VITALS: BP 123/71
--- NOTE | 2021-10-29 14:15 | NUR ---
Pain Clinic Assessment: 1. History of Osteoarthritis: BACK History of Rheumatoid Arthritis: Not Applicable 2. Height: 5 ft. 4 in. 162.6 cm. Weight: 137.0 lb. oz. 62.143 kg. Patient's BMI: 23.5 3. Vital Signs: BP: 123/71 Pulse: 108 Resp: 16 Temp: 02 Sat: 100 ECG Mon: 4. Pain Intensity: 0 at rest 9 with activity 5. Fall Risk: Dizziness: N Needs help standing or walking: Y Fallen in the last 3 months: N Fall risk comments: 6. Patient on Blood Thinner: None 7. History of Hypertension: Y 8. Opioid Therapy greater than 6 weeks: Y Opiate Contract Signed: 9. Risk Assessment Tool Provided: LOW RISK 0 10. Functional Assessment Tool: 55/70 11. Recreational Drug Use: Never Drug Type: Tobacco Use: Former Smoker Tobacco Type: Amount or Packs/day: How Many Years: Alcohol Use: No Frequency: Quant:
== END ==
LOC: PAIN 10:57
PROVIDERS: ATTEND Anesthesiology Pain Medicine
DX: G89.29 Other chronic pain (principal); M25.552 Pain in left hip; Z79.899 Other long term (current) drug therapy

== ENCOUNTER → 2021-11-19 | Outpatient (CLI) | payer OTHER ==
[~2021-11-19] VITALS: Ht 162.6 cm; Wt 63.8 kg
[2021-11-19 11:16] VITALS: BP 144/71
--- NOTE | 2021-11-19 11:37 | NUR ---
Pain Clinic Assessment: 1. History of Osteoarthritis: BACK History of Rheumatoid Arthritis: Not Applicable 2. Height: 5 ft. 4 in. 162.6 cm. Weight: 140.6 lb. oz. 63.776 kg. Patient's BMI: 24.1 3. Vital Signs: BP: 144/71 Pulse: 102 Resp: 16 Temp: 02 Sat: 100 ECG Mon: 4. Pain Intensity: 0 at rest 9 with activity 5. Fall Risk: Dizziness: N Needs help standing or walking: Y Fallen in the last 3 months: N Fall risk comments: 6. Patient on Blood Thinner: None 7. History of Hypertension: Y 8. Opioid Therapy greater than 6 weeks: Y Opiate Contract Signed: 9. Risk Assessment Tool Provided: LOW RISK 0 10. Functional Assessment Tool: 55/70 11. Recreational Drug Use: Never Drug Type: Tobacco Use: Former Smoker Tobacco Type: Amount or Packs/day: How Many Years: Alcohol Use: No Frequency: Quant:
== END | disposition home or self-care (01) ==
LOC: PAIN 10:11
PROVIDERS: ATTEND Anesthesiology Pain Medicine
DX: M25.552 Pain in left hip (principal); M70.62 Trochanteric bursitis, left hip; G89.29 Other chronic pain; Z98.890 Other specified postprocedural states; Z87.891 Personal history of nicotine dependence; Z79.899 Other long term (current) drug therapy

== ENCOUNTER → 2021-12-21 | Outpatient (CLI) | payer OTHER ==
[~2021-12-21] VITALS: Ht 162.6 cm; Wt 64.2 kg
[2021-12-21 11:07] VITALS: BP 137/77
--- NOTE | 2021-12-21 11:15 | NUR ---
Pain Clinic Assessment: 1. History of Osteoarthritis: BACK History of Rheumatoid Arthritis: Not Applicable 2. Height: 5 ft. 4 in. 162.6 cm. Weight: 141.6 lb. oz. 64.229 kg. Patient's BMI: 24.3 3. Vital Signs: BP: 137/77 Pulse: 108 Resp: 16 Temp: 02 Sat: 98 ECG Mon: 4. Pain Intensity: 9 5. Fall Risk: Dizziness: N Needs help standing or walking: Y Fallen in the last 3 months: N Fall risk comments: 6. Patient on Blood Thinner: None 7. History of Hypertension: Y 8. Opioid Therapy greater than 6 weeks: Y Opiate Contract Signed: 9. Risk Assessment Tool Provided: LOW RISK 0 10. Functional Assessment Tool: 55/70 11. Recreational Drug Use: Never Drug Type: Tobacco Use: Former Smoker Tobacco Type: Amount or Packs/day: How Many Years: Alcohol Use: No Frequency: Quant:
== END ==
LOC: PAIN 07:06
PROVIDERS: ATTEND Anesthesiology Pain Medicine
DX: G89.29 Other chronic pain (principal); R10.32 Left lower quadrant pain; Z79.899 Other long term (current) drug therapy